=== PATIENT | male | born 1935 | race Caucasian/White ===

== ENCOUNTER 2020-09-07 10:20 | Outpatient (CLI) | payer OTHER, MEDICAID, SELFPAY ==
[~2020-09-07] VITALS: Ht 165.1 cm; Wt 63.5 kg
[~2020-09-07 10:20] MED LIST: ALBU2SYR3 PO; DOXY100T2 PO; FURO-149 PO; HYT1 PO; LON10 PO
== END 2020-09-07 12:00 | disposition home or self-care (01) ==
LOC: SLB 10:20 → EDSTATUS 09-11 09:45
PROVIDERS: ATTEND Internal Medicine Gastroenterology
DX: Z20.822 Contact with and (suspected) exposure to COVID-19 (principal); R11.2 Nausea with vomiting, unspecified; R19.4 Change in bowel habit
CPT/HCPCS: U0003